=== PATIENT | female | born 1940 | race Caucasian/White ===

== ENCOUNTER 2020-10-31 20:14 | Emergency (ER) | payer MEDICARE, BC ==
[~2020-10-31] VITALS: Ht 170.2 cm; Wt 86.2 kg
[2020-10-31 20:24] VITALS: BP 132/69
--- NOTE | 2020-10-31 20:25 | NUR ---
AT BED SIDE
[2020-10-31] MEDS ORDERED: CEPH500T PO (20:30)
[2020-10-31] MEDS ORDERED: SULF1TAB48 PO (20:30)
== END 2020-10-31 20:45 | disposition home or self-care (01) ==
LOC: ER 20:14
DX: L03.116 Cellulitis of left lower limb (principal); Z60.2 Problems related to living alone; Z79.899 Other long term (current) drug therapy

== ENCOUNTER 2020-11-08 20:13 | Emergency (ER) | payer MEDICARE, BC ==
[~2020-11-08] VITALS: Ht 170.2 cm; Wt 74.8 kg
[~2020-11-08 20:13] MED LIST: CEPH500T PO; SULF1TAB48 PO
[2020-11-08 20:25] VITALS: BP 132/98
--- NOTE | 2020-11-08 20:32 | NUR ---
The patient bibs for wound check to cellulitis on L leg. Denies pain but states she has tingling sensation at the wound site from time to time. Will continue to monitor the patient.
[2020-11-08] MEDS ORDERED: CEPH500C2 PO (20:55)
[2020-11-08] MEDS ORDERED: SULF1TAB48 PO (20:55)
--- NOTE | 2020-11-08 21:03 | NUR ---
The patient alert and oriented x4. Patient discharged to home in stable condition. Written and verbal after care instructions given. Patient verbalizes understanding of instruction.
== END 2020-11-08 21:03 | disposition home or self-care (01) ==
LOC: ER 20:13
DX: L03.116 Cellulitis of left lower limb (principal); Z60.2 Problems related to living alone; Z79.899 Other long term (current) drug therapy

== ENCOUNTER 2021-09-20 15:00 | Outpatient (CLI) | payer MEDICARE, BC ==
[~2021-09-20 15:00] MED LIST changes: +CEPH500C2 PO
== END 2021-09-20 23:59 | disposition home or self-care (01) ==
LOC: LAB 15:00
DX: I82.409 Acute embolism and thrombosis of unspecified deep veins of unspecified lower extremity (principal); R91.1 Solitary pulmonary nodule

== ENCOUNTER 2021-12-17 18:22 | Inpatient (IN) | payer MEDICARE, BC ==
[~2021-12-17] VITALS: Ht 167.6 cm; Wt 79.4 kg
--- NOTE | 2021-12-17 18:31 | NUR ---
TO ER BED 9. BIBS C/O L LEG PAIN X 2DAYS AND SWELLING THAT HAS PROGRESSIVELY GOTTEN WORSE NOTICED BRUISING THIS MORNING.
--- NOTE | 2021-12-17 18:39 | NUR ---
DR THORNTON AT BEDSIDE FOR EVAL
[2021-12-17] MEDS ORDERED: LOSA50TA39 PO (18:47)
[2021-12-17] MEDS ORDERED: ROSU10TA29 PO (18:47)
[2021-12-17] MEDS ORDERED: APIX5TAB PO (18:47)
[2021-12-17 19:21] LABS: CALCIUM, SERUM 9.4 mg/dL (8.5-10.1); CARBON DIOXIDE 23 mmol/L (21-32); CHLORIDE 108 mmol/L (98-107); CREATININE 1.3 mg/dL (0.6-1.3); GLUCOSE 101 mg/dL (74-106); POTASSIUM 3.7 mmol/L (3.5-5.1); SODIUM SERUM 141 mmol/L (136-145); UREA NITROGEN, BLOOD 39 mg/dL (7-18)
[2021-12-17 20:05] LABS: BASOPHILS % (AUTO) 0.8 % (0.0-2.0); EOSINOPHILS % (AUTO) 7.7 % (0.0-6.0); HEMATOCRIT 33 % (33-45); HEMOGLOBIN 11.1 g/dL (11.5-14.8); LYMPHOCYTES # (AUTO) 1.5 K/uL (0.8-4.8); LYMPHOCYTES % (AUTO) 25.5 % (20.0-44.0); MEAN CORPUSCULAR HGB CONC 33 g/dl (31.0-36.0); MEAN CORPUSCULAR VOLUME 88 fL (82-100); MONOCYTES # (AUTO) 0.5 K/uL (0.1-1.30); MONOCYTES % (AUTO) 8.5 % (2.0-12.0); NEUTROPHILS # (AUTO) 3.3 K/uL (1.8-8.9); NEUTROPHILS % (AUTO) 57.5 % (43.0-81.0); PLATELET COUNT (AUTO) 238 K/uL (150-450); RED BLOOD CELL COUNT(AUTO) 3.79 MIL/uL (4.0-5.2); WHITE BLOOD COUNT (AUTO) 5.8 K/uL (4.3-11.0)
--- NOTE | 2021-12-17 20:14 | NUR ---
RADIOLOGIST ON PHONE WITH DR THORNTON
--- NOTE | 2021-12-17 20:18 | NUR ---
COVID SWAB DONE AND SENT TO LAB
[2021-12-17] MEDS ORDERED: HEPARIN INFUSION/D5W 500 ML IV PRN (20:30)
[2021-12-17] MEDS ORDERED: HEPARIN INFUSION/D5W 500 ML IV ONE (20:30)
--- NOTE | 2021-12-17 20:30 | NUR ---
MRSA SWAB COLLECTED AND SENT TO LAB. PATIENT'S BELONGINGS LIST DONE.
[2021-12-17] MEDS ORDERED: HEPARIN SODIUM, PORCINE 5000 UNITS/1 ML VIAL ONE (20:40)
[2021-12-17] MEDS ORDERED: ACETAMINOPHEN 325 MG TABLET PO PRN (21:00)
[2021-12-17] MEDS ORDERED: Z GUARD REMEDY 4 OZ OINT TP PRN (21:00)
[2021-12-17] MEDS ORDERED: MAGNESIUM HYDROXIDE 30 ML UDC PO PRN (21:00)
[2021-12-17] MEDS ORDERED: HEPARIN SODIUM, PORCINE 5000 UNITS/1 ML VIAL IV ONE (21:00)
[2021-12-17] MEDS ORDERED: ONDANSETRON HCL/PF 4 MG/2 ML VIAL IVP PRN (21:00)
[2021-12-17] MEDS ORDERED: ZOLPIDEM TARTRATE 5 MG TABLET PO PRN (21:00)
[2021-12-17] MEDS ORDERED: MAG HYDROX/AL HYDROX/SIMETH 30 ML UDC PO PRN (21:00)
--- NOTE | 2021-12-17 21:50 | NUR ---
REPORT GIVEN TO CESAR FAULKNER
--- NOTE | 2021-12-17 21:56 | NUR ---
PATIENT BEING TRANSFERRED TO [facility] IN STABLE CONDITION.
[2021-12-17 22:10] VITALS: BP 149/87
--- NOTE | 2021-12-18 02:37 | NUR ---
ADMISSION NOTES PT ARRIVED VIA GURNEY @8648 12/17 ACCOMPANIED BY EMT. ABLE TO AMBULATE TO BED. AOx4, ABLE TO MAKE NEEDS KNOWN. ON RA AND TOLERATING WELL. NO SOB NOTED. NO S/SX OF RESPIRATORY DISTRESS NOTED. IV ACCESS IN RAC #18 G RUNNING HEPARIN @ 30 ML/HR. SKIN PROBLEM PICTURES TAKEN. SAFETY PRECAUTIONS IN PLACE: BED IN LOWEST, LOCKED POSITION, SIDERAILS UPx2, AND BRAKES ON. TABLE AND CALL LIGHT WITHIN REACH. WILL CONTINUE TO MONITOR.
[2021-12-18 04:10] LABS: BASOPHILS % (AUTO) 0.9 % (0.0-2.0); EOSINOPHILS % (AUTO) 9.8 % (0.0-6.0); HEMATOCRIT 31 % (33-45); HEMOGLOBIN 10.6 g/dL (11.5-14.8); LYMPHOCYTES # (AUTO) 1.5 K/uL (0.8-4.8); LYMPHOCYTES % (AUTO) 30.9 % (20.0-44.0); MEAN CORPUSCULAR HGB CONC 34 g/dl (31.0-36.0); MEAN CORPUSCULAR VOLUME 88 fL (82-100); MONOCYTES # (AUTO) 0.4 K/uL (0.1-1.30); MONOCYTES % (AUTO) 7.9 % (2.0-12.0); NEUTROPHILS # (AUTO) 2.5 K/uL (1.8-8.9); NEUTROPHILS % (AUTO) 50.5 % (43.0-81.0); PLATELET COUNT (AUTO) 224 K/uL (150-450); RED BLOOD CELL COUNT(AUTO) 3.56 MIL/uL (4.0-5.2)
[2021-12-18 04:29] LABS: CARBON DIOXIDE 25 mmol/L (21-32); CHLORIDE 109 mmol/L (98-107); CREATININE 1.3 mg/dL (0.6-1.3); GLUCOSE 101 mg/dL (74-106); MAGNESIUM 2.2 mg/dL (1.8-2.4); PHOSPHORUS 3.7 mg/dL (2.5-4.9); POTASSIUM 3.5 mmol/L (3.5-5.1); SODIUM SERUM 142 mmol/L (136-145); UREA NITROGEN, BLOOD 33 mg/dL (7-18)
--- NOTE | 2021-12-18 04:51 | NUR ---
RN NOTES RECEIVED CRITICAL LAB VALUE OF 145.3 FOR PTT. WILL CONTACT MARINE DESIGN ENGINEER DOCTORLALA. Addendum: 12/18/21 at 0645 by AMMY COURTNEY RN DR. GONZALEZ AWARE. REQUESTED PHARMACY'S ASSISTANCE FOR ADJUSTING HEPARIN DRIP. PHARMACY RECOMMENDED HEPARIN DRIP BE HELD FOR ONE HOUR AND RATE ADJUSTED TO 1250 UNITS/HR.
--- NOTE | 2021-12-18 06:43 | NUR ---
RN CLOSING NOTES PT IN BED, AWAKE, WATCHING TV. AOx4, ABLE TO MAKE NEEDS KNOWN. ON RA AND TOLERATING WELL. NO SOB NOTED. NO S/SX OF RESPIRATORY DISTRESS NOTED. IV ACCESS IN RAC #18 G RUNNING HEPARIN @ 1250 UNITS/H ALL ORDERS CARRIED OUT. ALL NEEDS MET. PT KEPT CLEAN AND DRY. SAFETY PRECAUTIONS IN PLACE: BED IN LOWEST, LOCKED POSITION, SIDERAILS UPx2, AND BRAKES ON. TABLE AND CALL LIGHT WITHIN REACH. WILL ENDORSE TO ONCOMING SHIFT FOR MILES.
--- NOTE | 2021-12-18 07:30 | NUR ---
RN MS NOTES PT IN BED, AWAKE, ALERT AND ORIENTED, DENIES PAIN, NOT IN DISTRESS, CALL LIGHT WITHIN REACH, ABLE TO AMBULATE TO THE BATHROOM WITH SLOW AND STEADY GAIT, ON HEPARIN DRIP INFUSING AT 1250U/HR, NO S/S OF BLEEDING NOTED, NEEDS ATTENDED.
[2021-12-18 08:00] VITALS: BP 129/91
[2021-12-18] MEDS: LOSARTAN POTASSIUM 50 MG TABLET PO SCH (09:19)
[2021-12-18 15:50] LABS: THYROID STIMULATING HORMONE 2.087 uIU/mL (0.358-3.74)
[2021-12-18 16:00] VITALS: BP 118/61
[2021-12-18] MEDS: ATORVASTATIN 40 MG TABLET PO SCH (17:21)
[2021-12-18] MEDS: HEPARIN INFUSION/D5W 500 ML IV PRN (17:34)
--- NOTE | 2021-12-18 18:48 | NUR ---
RN CLOSING NOTE PT REMAINS IN BED. A/OX4. NO SOB OR S/SX OF DISTRESS OBSERVED OR REPORTED. NO C/O PAIN. ABLE TO MAKE NEEDS KNOWN. IV ACCESS TO RIGHT AC PATENT AND RUNNING WELL. NO S/SX OF INFILTRATION OR REDNESS. CONTINUOUS HEPARIN DRIP RUNNING AT 1100 UNITS/HR (22ML/HR PER ORDERED SCALE). NO S/SX OF ADVERSE REACTION OBSERVED OR REPORTED. CALL WITHIN REACH. BED IN LOWEST POSITION AND LOCKED W/ SIDERAIL UP X2. WILL CONTINUE TO MONITOR.
--- NOTE | 2021-12-18 19:00 | NUR ---
RN opening notes Received Pt sitting in bed comfortably watching TV. Pt is alert and orientedX4. On room air. No SOB. No S/S of distress noted. IV site at RAC# 18 is clean, intact and infusing well heparin at 22ml/hr. No s/s of bleeding noted. Safety precautions is maintained. Bed at low position, brakes locked, side rails upX2, hob elevated and call light is within reach. Will continue to monitor.
--- NOTE | 2021-12-18 19:30 | NUR ---
RN notes Pt is going to nuclear medicine accompanied by primary RN and Chad from radiology.
[2021-12-18 20:00] VITALS: BP 147/78
--- NOTE | 2021-12-18 20:10 | NUR ---
RN notes Pt is back from nuclear medicine. Pt tolerated activity well. Heparin still infusing well.
--- NOTE | 2021-12-18 20:43 | NUR ---
NM LUNG V/Q WAS COMPLETED. TECH:RB
--- NOTE | 2021-12-19 06:30 | NUR ---
RN closing notes Pt is resting in bed comfortably. Pt is alert and orientedX4. On room air. No SOB. No S/S of distress noted. Vs is stable. IV site at RAC# 18 is clean, intact and infusing well heparin at 22ml/hr. No s/s of bleeding noted. Kept Pt clean, dry and comfortable. All needs met and attended. Safety precautions is maintained. Bed at low position, brakes locked, side rails upX2, hob elevated and call light is within reach. Will endorse to am nurse for MILES.
--- NOTE | 2021-12-19 07:30 | NUR ---
RN MS NOTES PT IN BED, AWAKE, ALERT AND ORIENTED, DENIES PAIN, NOT IN DISTRESS, CALL LIGHT WITHIN REACH, ABLE TO AMBULATE TO THE BATHROOM WITH SLOW AND STEADY GAIT, ON HEPARIN DRIP INFUSING AT 1100U/HR, NO S/S OF BLEEDING NOTED, NEEDS ATTENDED.
[2021-12-19 08:00] VITALS: BP 138/75
[2021-12-19 08:07] LABS: IMMUNOGLOBULIN A, SERUM 192 mg/dL (64-422); IMMUNOGLOBULIN G, SERUM 723 mg/dL (586-1602); IMMUNOGLOBULIN M, SERUM 66 mg/dL (26-217)
--- NOTE | 2021-12-19 08:29 | NUR ---
RN OPENING NOTE RECEIVED PATIENT IN BED, AWAKE AND ALERT. A/OX4. NO S/SX OF DISTRESS OBSERVED UPON ASSESSMENT. DENIES ANY PAIN AT THIS TIME. ALL SAFETY MEASURES IN PLACE. BED IN LOWEST POSITION, BRAKES LOCKED, SIDERAIL UP X2. CALL LIGHT WITHIN REACH. WILL CONTINUE TO MONITOR.
--- NOTE | 2021-12-19 09:05 | NUR ---
RN MS NOTES PT SEEN AND EXAMINED BY DR. GARCIA, PLAN OF CARE DISCUSSED WITH PT, PT AGREES.
[2021-12-19] MEDS: LOSARTAN POTASSIUM 50 MG TABLET PO SCH (09:19)
[2021-12-19 13:06] LABS: *SPE ALPHA-1-GLOBULIN 0.3 g/dL (0.0-0.4); *SPE ALPHA-2-GLOBULIN 0.8 g/dL (0.4-1.0); *SPE BETA GLOBULIN 0.8 g/dL (0.7-1.3); *SPE M-SPIKE Not Observed g/dL (Not Observed)
[2021-12-19 14:49] LABS: BASOPHILS % (AUTO) 0.5 % (0.0-2.0); EOSINOPHILS % (AUTO) 5.3 % (0.0-6.0); HEMATOCRIT 32 % (33-45); HEMOGLOBIN 10.5 g/dL (11.5-14.8); LYMPHOCYTES # (AUTO) 1.2 K/uL (0.8-4.8); LYMPHOCYTES % (AUTO) 20.8 % (20.0-44.0); MEAN CORPUSCULAR HGB CONC 33 g/dl (31.0-36.0); MEAN CORPUSCULAR VOLUME 89 fL (82-100); MONOCYTES # (AUTO) 0.5 K/uL (0.1-1.30); MONOCYTES % (AUTO) 8.3 % (2.0-12.0); NEUTROPHILS # (AUTO) 3.7 K/uL (1.8-8.9); NEUTROPHILS % (AUTO) 65.1 % (43.0-81.0); PLATELET COUNT (AUTO) 205 K/uL (150-450); WHITE BLOOD COUNT (AUTO) 5.7 K/uL (4.3-11.0)
[2021-12-19 16:07] VITALS: BP 137/72
[2021-12-19] MEDS: HEPARIN INFUSION/D5W 500 ML IV PRN (16:52)
[2021-12-19] MEDS: ATORVASTATIN 40 MG TABLET PO SCH (17:31)
--- NOTE | 2021-12-19 19:00 | NUR ---
RN opening notes Pt is resting in bed comfortably. Pt is alert and orientedX4. On room air. No SOB. No S/S of distress noted. IV site at RAC# 18 is clean, intact and infusing well heparin at 22ml/hr. No s/s of bleeding noted. Safety precautions is maintained. Bed at low position, brakes locked, side rails upX2, hob elevated and call light is within reach. Will continue to monitor.
--- NOTE | 2021-12-19 19:05 | NUR ---
RN CLOSING NOTE PT REMAINS IN BED. A/OX4. NO SOB OR S/SX OF DISTRESS OBSERVED OR REPORTED. NO C/O PAIN. ABLE TO MAKE NEEDS KNOWN. IV ACCESS TO RIGHT AC PATENT AND RUNNING WELL. NO S/SX OF INFILTRATION OR REDNESS. CONTINUOUS HEPARIN DRIP CONTINUES TO RUN AT 1100 UNITS/HR (22ML/HR PER ORDERED SCALE). AMBULATES INDEPENDENTLY TO BATHROOM, HOWEVER PREFERS NURSE TO BE AROUND FOR ASSISTANCE. NO S/SX OF ADVERSE REACTION OBSERVED OR REPORTED. CALL LIGHT WITHIN REACH. BED IN LOWEST POSITION AND LOCKED W/ SIDERAIL UP X2. WILL CONTINUE TO MONITOR.
[2021-12-19 20:00] VITALS: BP 132/63
[2021-12-20 06:35] LABS: CALCIUM, SERUM 8.8 mg/dL (8.5-10.1); CARBON DIOXIDE 25 mmol/L (21-32); CHLORIDE 111 mmol/L (98-107); CREATININE 1.4 mg/dL (0.6-1.3); GLUCOSE 100 mg/dL (74-106); POTASSIUM 3.5 mmol/L (3.5-5.1); SODIUM SERUM 145 mmol/L (136-145); UREA NITROGEN, BLOOD 27 mg/dL (7-18)
--- NOTE | 2021-12-20 06:43 | NUR ---
RN closing notes Pt is resting in bed comfortably. Pt is alert and orientedX4. On room air. No SOB. No S/S of distress noted. VS is stable. IV site at RAC# 18 is clean, intact and infusing well heparin at 22 ml/hr. Safety precautions is maintained. Kept Pt clean, dry and comfortable. Bed at low position, brakes locked, side rails upX2, hob elevated and call light is within reach. Will endorse to am nurse for MILES.
[2021-12-20 06:51] LABS: BASOPHILS % (AUTO) 0.6 % (0.0-2.0); EOSINOPHILS % (AUTO) 6.8 % (0.0-6.0); HEMATOCRIT 32 % (33-45); HEMOGLOBIN 10.5 g/dL (11.5-14.8); LYMPHOCYTES # (AUTO) 1.2 K/uL (0.8-4.8); LYMPHOCYTES % (AUTO) 26.4 % (20.0-44.0); MEAN CORPUSCULAR HGB CONC 33 g/dl (31.0-36.0); MEAN CORPUSCULAR VOLUME 88 fL (82-100); MONOCYTES # (AUTO) 0.5 K/uL (0.1-1.30); MONOCYTES % (AUTO) 10.1 % (2.0-12.0); NEUTROPHILS # (AUTO) 2.6 K/uL (1.8-8.9); NEUTROPHILS % (AUTO) 56.1 % (43.0-81.0); PLATELET COUNT (AUTO) 206 K/uL (150-450); RED BLOOD CELL COUNT(AUTO) 3.57 MIL/uL (4.0-5.2); WHITE BLOOD COUNT (AUTO) 4.7 K/uL (4.3-11.0)
--- NOTE | 2021-12-20 07:43 | NUR ---
RN OPENING NOTE PATIENT IN BED, AWAKE AND ALERT. A/OX4. NO S/SX OF DISTRESS OBSERVED UPON ASSESSMENT. DENIES ANY PAIN AT THIS TIME. DR GARCIA ASSESSING PT AT BEDSIDE. WILL DC TODAY. DR GARCIA ORDERED HEPARIN GTT TO DC. WILL START PT ON ORAL ANTICOAG THIS MORNING. ALL SAFETY MEASURES IN PLACE. BED IN LOWEST POSITION, BRAKES LOCKED, SIDERAILS UP X2. CALL LIGHT WITHIN REACH. WILL CONTINUE TO MONITOR./ ASSIST
[2021-12-20 08:00] VITALS: BP 131/65
[2021-12-20 08:26] VITALS: BP 131/65
[2021-12-20] MEDS: LOSARTAN POTASSIUM 50 MG TABLET PO SCH (08:26)
[2021-12-20] MEDS ORDERED: RIVA10TA PO (09:39)
[2021-12-20] MEDS ORDERED: RIVAROXABAN 15 MG TABLET PO STA (11:34)
--- NOTE | 2021-12-20 12:01 | NUR ---
CUSTOMER ACCOUNT MANAGER NOTE- PT DC HOME aT THIS TIME. VS STABLE, AOX4, INTERACTIVE DENIES PAIN. AFTERCARE AND DC PLAN REVIEWED AND UNDERSTOOD. PT REFUSED PHOTO OF BRUISES ON LEG. ID WRISTBAND REMOVED AND IV HEPLOCK DC'D. ESCORTED OFF UNIT BY THIS RN TO [facility]ERSONAL [employer].
[2021-12-20 12:07] LABS: *CARD ANTI-CARDIOLIPIN AB IgG <9 GPL U/mL (0-14); *CARD ANTI-CARDIOLIPIN AB IgM 16 MPL U/mL (0-12)
[2021-12-21 14:07] LABS: *FACTOR II, DNA ANALYSIS Negative (.)
[2021-12-26 07:07] LABS: *DILUTE PROTHROMBIN TIME (dPT) 39.2 sec (0.0-47.6); *THROMBIN TIME 36.9 sec (0.0-23.0); *dPT CONFIRM RATIO 0.82 Ratio (0.00-1.34); *dRVVT 41.9 sec (0.0-47.0)
== END 2021-12-20 11:55 | disposition home or self-care (01) | DRG 299 ==
LOC: ER 18:27 → MED 21:42
PROVIDERS: ADMIT Nurse Practitioner Acute Care; ATTEND Internal Medicine Pulmonary Disease
DX: I82.412 Acute embolism and thrombosis of left femoral vein (principal); N17.0 Acute kidney failure with tubular necrosis; D68.59 Other primary thrombophilia; I10 Essential (primary) hypertension; E78.5 Hyperlipidemia, unspecified; Z79.01 Long term (current) use of anticoagulants; Z79.899 Other long term (current) drug therapy; I89.0 Lymphedema, not elsewhere classified; R79.89 Other specified abnormal findings of blood chemistry; Z86.718 Personal history of other venous thrombosis and embolism; D64.9 Anemia, unspecified
CPT/HCPCS: 36415; 78582; 80048-TC; 81240; 81241; 82607-TC; 82728-TC; 82784; 83090; 83540-TC; 83735-TC; 84100-TC; 84155; 84165; 84443-TC; 85025-TC; 85303; 85610-TC; 85613; 85670; 85705; 85730-TC; 85732; 86147; 86334; 87081-TC; 93971-TC; A9540; A9567; C9803; G0378; J1644

== ENCOUNTER 2024-08-11 03:08 | Emergency (ER) | payer MEDICARE, BC ==
[~2024-08-11] VITALS: Ht 167.6 cm; Wt 79.4 kg
[~2024-08-11 03:08] MED LIST changes: -CEPH500C2 PO; -CEPH500T PO; +LOSA50TA39 PO; +RIVA10TA PO; +ROSU10TA29 PO; -SULF1TAB48 PO
[2024-08-11] MEDS ORDERED: ACET-73 PO (07:43)
[2024-08-11 10:12] VITALS: BP 133/56; TEMP 98; O2SAT 97
== END 2024-08-11 10:12 | disposition home or self-care (01) ==
LOC: ER 03:10
DX: M79.604 Pain in right leg (principal); M79.89 Other specified soft tissue disorders; I10 Essential (primary) hypertension; M71.21 Synovial cyst of popliteal space [Baker], right knee; Z79.01 Long term (current) use of anticoagulants; Z79.899 Other long term (current) drug therapy; Z86.718 Personal history of other venous thrombosis and embolism
CPT/HCPCS: 93971-TC